=== PATIENT | female | born 1995 | race Caucasian/White ===

== ENCOUNTER 2024-12-25 15:19 | Emergency (ER) | payer OTHER ==
[~2024-12-25] VITALS: Ht 157.5 cm; Wt 90.3 kg
[2024-12-25] MEDS ORDERED: FLUTICASONE-SA1 EAC5 INH (15:33)
[2024-12-25] MEDS ORDERED: FAMOTIDINE20 MG PO (15:34)
[2024-12-25] MEDS ORDERED: LEVOTHYROXINE25 MCG PO (15:34)
[2024-12-25] MEDS ORDERED: AIRSUPRA 90-810.7 GM INH (15:34)
[2024-12-25] MEDS ORDERED: PANTOPRAZOLE SO40 MG PO (15:34)
[2024-12-25] MEDS ORDERED: MONTELUKAST SOD10 MG PO (15:35)
[2024-12-25] MEDS ORDERED: DROSPIRENONE-E1 EACH PO (15:35)
[2024-12-25 15:39] LABS: BASOPHILS 0.5 % (0-2); EOSINOPHILS 0.7 % (0-6); HEMATOCRIT 37.9 % (35.0-50.0); MCHC 34.2 g/dl (30-36); MCV 78.8 fl (81-99); MONOCYTES 6.6 % (0-12); NEUTROPHILS 65.2 % (39-80); PLATELET COUNT 329 K/uL (140-440); RBC 4.81 M/ul (4.3-5.7); RDW 13.2 (10.5-15.0)
[2024-12-25 15:45] LABS: BILIRUBIN, URINE NEGATIVE (negative); BLOOD/HGB, URINE NEGATIVE (Negative); KETONE, URINE NEGATIVE (Negative); LEUK ESTERASE, URINE NEGATIVE (negative); NITRITE, URINE NEGATIVE (negative); PH, URINE 5.5 (5-7)
[2024-12-25] MEDS ORDERED: ondansetron HCL 4 MG/2 ML VIAL IV ONE (15:45)
[2024-12-25 15:54] LABS: ALBUMIN 3.6 g/dL (3.4-5.0); ALBUMIN/GLOBULIN RATIO 0.9 (1.1-2.4); ANION GAP 14.7 (7-21); BILIRUBIN, TOTAL 0.2 ng/dL (0.2-1.0); BUN/CREATININE RATIO 8.47 (6.0-28.6); CALCIUM 9.5 mg/dL (8.5-10.1); CREATININE, SERUM 1.18 mg/dL (0.55-1.02); POTASSIUM 3.7 mmol/L (3.5-5.1); PROTEIN, TOTAL 7.6 g/dL (6.4-8.2)
[2024-12-25] MEDS ORDERED: HYDROCODONE/ACETA 5/325 TAB PO ONE (16:15)
[2024-12-25] MEDS ORDERED: DICYCLOMINE HCL 10 MG CAP PO ONE (16:15)
[2024-12-25] MEDS ORDERED: HYDROCODON-ACE1 EA10 PO (18:31)
[2024-12-25] MEDS ORDERED: DICYCLOMINE HCL20 MG PO (18:31)
[2024-12-25] MEDS ORDERED: ONDANSETRON ODT8 MG PO (18:33)
[2024-12-25 18:42] VITALS: BP 122/78
== END 2024-12-25 18:43 | disposition home or self-care (01) ==
LOC: ED 15:19
PROVIDERS: Emergency Medicine
DX: R10.11 Right upper quadrant pain (principal); J45.909 Unspecified asthma, uncomplicated; K21.9 Gastro-esophageal reflux disease without esophagitis; Z88.0 Allergy status to penicillin; Z79.890 Hormone replacement therapy; Z79.899 Other long term (current) drug therapy
CPT/HCPCS: 36415; 80053; 81003; 83690; 84703; 85025; 99284